=== PATIENT | male | born 1995 | race Caucasian/White ===

== ENCOUNTER 2022-02-22 18:16 | Emergency (ER) | payer SELFPAY ==
[~2022-02-22] VITALS: Ht 182.8 cm; Wt 108.9 kg
[~2022-02-22 18:16] MED LIST: CIPRO250 MG PO; HYDROCODONE BIT1 T11 PO; Motrin,Rufen800 MG PO; PENICILLIN-VK500 MG PO; PERCOCET 5-3251 EACH PO; PHENERGAN25 M3 PO; VICO10300 PO; ZOFRAN4 MG PO
[2022-02-22 19:23] LABS: BILIRUBIN Negative (Negative); BLOOD 3+ (Negative); CLARITY Clear (Clear); COLOR Yellow (Yellow); GLUCOSE Negative (Negative); KETONE Trace (Negative); LEUKO ESTERASE Trace (Negative); NITRITE Negative (Negative); PH 5.5 (4.5-8.0)
[2022-02-22 19:47] LABS: BASO # 0.1 10*3/uL (0.0-0.1); BASO % 0.8 % (0.0-1.0); EOS # 0.5 10*3/uL (0.0-0.4); EOS % 4.2 % (1.0-4.0); HEMATOCRIT 45.7 % (42.0-52.0); LYMPH # 2.5 10*3/uL (1.3-4.4); LYMPH % 21.3 % (27.0-41.0); MEAN CELL VOLUME 97.6 fl (80.0-94.0); MEAN CORPUSCULAR HGB CONC 34.8 g/dl (33.0-37.0); MEAN PLATELET VOLUME 10.1 fl (9.6-12.3); MONO # 0.9 10*3/uL (0.1-1.0); MONO % 7.8 % (3.0-9.0); NEUT # 7.8 10*3/uL (2.3-7.9); NEUT % 65.2 % (47.0-73.0); PLATELET COUNT AUTOMATED 242 10*3/uL (130-400); RED BLOOD COUNT 4.68 10*6/uL (4.50-5.90); WHITE BLOOD COUNT 11.9 10*3/uL (4.8-10.8)
[2022-02-22 20:02] LABS: BACTERIA 1+; MUCOUS 1+; RBC 21-30 rbc/hpf (0-2)
[2022-02-22 20:08] LABS: ALKALINE PHOSPHATASE 65 U/L (45-117); BUN 10 mg/dl (7-24); CHLORIDE 105 mmol/L (98-107); CREATININE 1.05 mg/dL (0.70-1.30); POTASSIUM 3.8 mmol/L (3.5-5.1); SGOT/AST 17 IU/L (3-35); SGPT/ALT 35 U/L (12-78); SODIUM 137 mmol/L (136-145); TOTAL PROTEIN 7.1 gm/dL (6.4-8.2)
[2022-02-22 21:33] VITALS: BP 160/98
[2022-02-22] MEDS ORDERED: ONDANSETRON4 MG SL (21:46)
[2022-02-22] MEDS ORDERED: PERCOCET 5-3251 EACH PO (21:46)
== END 2022-02-22 22:06 | disposition home or self-care (01) ==
LOC: ED 18:16
PROVIDERS: Emergency Medicine
DX: N13.2 Hydronephrosis with renal and ureteral calculous obstruction (principal); Z88.1 Allergy status to other antibiotic agents; Z88.8 Allergy status to other drugs, medicaments and biological substances

== ENCOUNTER 2024-08-06 14:05 | Emergency (ER) | payer OTHER ==
[~2024-08-06] VITALS: Ht 187.9 cm; Wt 115.7 kg
[~2024-08-06 14:05] MED LIST changes: +ONDANSETRON4 MG SL
[2024-08-06 14:31] VITALS: BP 153/90
[2024-08-06] MEDS ORDERED: CLINDAMYCIN HC300 MG PO (14:49)
[2024-08-06] MEDS ORDERED: OFLOXACIN 10 ML10 M2 OU (14:49)
[2024-08-06] MEDS ORDERED: OFLOXACIN 0.3% 5 ML BOTTLE OT ONE (14:50)
[2024-08-06] MEDS ORDERED: CLINDAMYCIN HCL 300 MG CAPSULE PO ONE (14:50)
== END 2024-08-06 15:00 | disposition home or self-care (01) ==
LOC: ED 14:05
DX: H66.93 Otitis media, unspecified, bilateral (principal); H60.12 Cellulitis of left external ear; K21.9 Gastro-esophageal reflux disease without esophagitis; J45.909 Unspecified asthma, uncomplicated; E87.6 Hypokalemia; Z87.442 Personal history of urinary calculi; Z88.1 Allergy status to other antibiotic agents; Z88.8 Allergy status to other drugs, medicaments and biological substances; Z91.011 Allergy to milk products; Z90.89 Acquired absence of other organs; Z98.890 Other specified postprocedural states